=== PATIENT | male | born 1960 ===

== ENCOUNTER 2020-09-22 02:40 | Emergency (ER) | payer OTHER | END 2020-09-22 03:45 | LOC: CSHERS 02:40 | DX: S63.501A Unspecified sprain of right wrist, initial encounter (principal); E11.9 Type 2 diabetes mellitus without complications; I10 Essential (primary) hypertension; Z79.899 Other long term (current) drug therapy; Z79.82 Long term (current) use of aspirin; Z79.4 Long term (current) use of insulin; X58.XXXA Exposure to other specified factors, initial encounter ==